=== PATIENT | female | born 1955 | race Caucasian/White ===

== ENCOUNTER 2017-10-12 19:03 | Emergency (ER) | payer MEDICARE, OTHER ==
[~2017-10-12] VITALS: Ht 165.1 cm; Wt 56.2 kg
[~2017-10-12 19:03] MED LIST: ACET325 PO; ALBU90OI INH; ALBU90OI6 INH; ALPR.5 PO; ASPI81CH PO; ATEN25 PO; ATEN50 PO; ATOR40TA PO; AZIT250 PO; AZIT500 PO; BENZ100A PO; Baclofen10 MG PO; CARV6.25 PO; CIPR500 PO; CLOP75 PO; CODACE30 PO; Cipro500 MG PO; DULERA 200 MCG/13 GM INH; FAMO20 PO; GABA300 PO; IBUP400 PO; LIDO2L TOP; LISI20 PO; LOVA20 PO; MECL12.5; MECL12.5 PO; MELO7.5 PO; METCAR500 PO; METF500 PO; METPRE4 PO; Naproxen250 MG PO; Norco 5-325 Ta1 EACH PO; OXYACE5T PO; PRED20 PO; PRODEXEL PO; Percocet 5-3251 EACH PO; TIOT18 IH; Xanax0.5 MG PO; Zithromax250 MG PO
[2017-10-12] MEDS ORDERED: ALBU90OI INH (19:31)
[2018-04-22] MEDS ORDERED: TRAM50 PO (13:28)
== END 2017-10-12 19:51 | disposition home or self-care (01) ==
LOC: ER 19:03
DX: Z76.0 Encounter for issue of repeat prescription (principal); J44.9 Chronic obstructive pulmonary disease, unspecified; I10 Essential (primary) hypertension; E78.5 Hyperlipidemia, unspecified; Z88.0 Allergy status to penicillin; Z88.1 Allergy status to other antibiotic agents; Z79.84 Long term (current) use of oral hypoglycemic drugs; Z79.899 Other long term (current) drug therapy; Z79.82 Long term (current) use of aspirin; Z87.891 Personal history of nicotine dependence
CPT/HCPCS: 94640; 99283

== ENCOUNTER 2017-11-10 18:27 | Emergency (ER) | payer MEDICARE, OTHER ==
[~2017-11-10] VITALS: Ht 165.1 cm; Wt 56.2 kg
== END 2017-11-10 19:40 | disposition home or self-care (01) ==
LOC: ER 18:27
DX: S60.221A Contusion of right hand, initial encounter (principal); I10 Essential (primary) hypertension; E78.5 Hyperlipidemia, unspecified; J44.9 Chronic obstructive pulmonary disease, unspecified; Z88.0 Allergy status to penicillin; Z79.899 Other long term (current) drug therapy; Z79.82 Long term (current) use of aspirin; Z86.73 Personal history of transient ischemic attack (TIA), and cerebral infarction without residual deficits; Z87.891 Personal history of nicotine dependence; W23.0XXA Caught, crushed, jammed, or pinched between moving objects, initial encounter
CPT/HCPCS: 29125; 73130; 99283

== ENCOUNTER → 2017-11-12 | Outpatient (CLI) | payer MEDICARE, OTHER ==
[2017-11-12 18:40] LABS: BASOPHILS ABSOLUTE AUTO 0.06 K/mm3 (0.00-0.23); BASOPHILS PERCENT AUTO 1 % (0-2); EOSINOPHILS ABSOLUTE AUTO 0.59 K/mm3 (0.00-0.68); EOSINOPHILS PERCENT AUTO 6 % (0-6); Hematocrit 38.4 % (33.0-51.0); Hemoglobin 12.2 g/dL (11.5-16.0); IMMATURE GRAN ABSOLUTE AUTO 0.03 K/mm3 (0.00-0.10); IMMATURE GRAN PERCENT AUTO 0 % (0-1); LYMPHOCYTES ABSOLUTE AUTO 2.33 K/mm3 (0.84-5.20); LYMPHOCYTES PERCENT AUTO 24 % (21-46); MONOCYTES ABSOLUTE AUTO 0.68 K/mm3 (0.16-1.47); MONOCYTES PERCENT AUTO 7 % (4-13); Mean Corpuscular HGB 27.6 pg (26.0-34.0); Mean Corpuscular HGB Conc 31.8 g/dL (31.5-36.5); Mean Corpuscular Volume 87 fL (80-100); Mean Platelet Volume 10.9 fL (9.1-12.4); NEUTROPHILS ABSOLUTE AUTO 5.85 K/mm3 (1.96-9.15); NEUTROPHILS PERCENT AUTO 61 % (41-73); Platelet Count 314 K/mm3 (150-400); RDW Coefficient Variation 13.6 % (11.7-14.2); RDW Standard Deviation 42.9 fL (35.1-46.3); Red Blood Cell Count 4.42 M/mm3 (3.80-5.20); White Blood Cell Count 9.54 K/mm3 (4.00-11.30)
[2017-11-12 19:18] LABS: Alanine Aminotransfer (ALT/SGP 14 U/L (12-78); Albumin, Blood 3.5 g/dL (3.4-5.0); Albumin/Globulin Ratio 0.9 (0.8-1.8); Alk Phos 92 U/L (50-136); Anion Gap 5 mmol/L (6-16); Aspartate Aminotrans (AST/SGOT 19 U/L (12-37); Bilirubin, Total 0.5 mg/dL (0.1-1.0); Blood Urea Nitrogen 14 mg/dL (8-24); Bun/Creatinine Ratio 21.7 (12.0-20.0); CO2, Blood 28 mmol/L (21-32); Calcium, Blood 8.9 mg/dL (8.5-10.1); Chloride, Blood 109 mmol/L (98-108); Creatinine, Blood 0.65 mg/dL (0.40-1.00); Globulin, Blood 3.8 g/dL (2.2-4.0); Glomerular Filtration Rate >60 (60-); Glucose, Blood 101 mg/dL (70-99); Potassium, Blood 3.2 mmol/L (3.5-5.5); Sodium, Blood 142 mmol/L (136-145); Total Protein, Blood 7.3 g/dL (6.4-8.2)
[2017-11-13 16:10] LABS: Free Thyroxine 1.08 ng/dL (0.70-1.60)
[2017-11-14 10:51] LABS: Albumin 3.3 g/dL (3.3-4.8); Albumin 48.4 % (45.0-80.0); Protein, Total 6.8 g/dL (6.1-7.8)
== END | disposition home or self-care (01) ==
LOC: LAB 15:16 → LAB SHORT 15:16
PROVIDERS: Nurse Practitioner Adult Health
DX: E11.9 Type 2 diabetes mellitus without complications (principal); E83.51 Hypocalcemia; E88.09 Other disorders of plasma-protein metabolism, not elsewhere classified; R63.4 Abnormal weight loss
CPT/HCPCS: 80053; 83970; 84165; 84439; 84443; 85025

== ENCOUNTER → 2017-12-11 | Outpatient (CLI) | payer MEDICARE, OTHER ==
[2017-12-11 18:26] LABS: Potassium, Blood 4.5 mmol/L (3.5-5.5)
== END ==
LOC: LAB 12:10 → LAB SHORT 12:10
PROVIDERS: Nurse Practitioner Adult Health
DX: E21.3 Hyperparathyroidism, unspecified (principal)
CPT/HCPCS: 80051